=== PATIENT | female | born 1945 | race Two or more races ===

== ENCOUNTER 2024-07-18 11:17 | Emergency (ER) | payer OTHER ==
[~2024-07-18] VITALS: Ht 157.5 cm; Wt 81.6 kg
[2024-07-18] MEDS ORDERED: KETOROLAC TROMETHAMINE 60 MG VIAL IM ONE ×2 (13:30→13:41)
[2024-07-18] MEDS ORDERED: HIBICLENS118 ML TOP (15:57)
== END 2024-07-18 17:01 | disposition home or self-care (01) ==
LOC: ER 11:19
DX: S82.844A Nondisplaced bimalleolar fracture of right lower leg, initial encounter for closed fracture (principal); W18.39XA Other fall on same level, initial encounter; Y93.89 Activity, other specified; Y92.89 Other specified places as the place of occurrence of the external cause